=== PATIENT | female | born 1965 | race African-American/Black ===

== ENCOUNTER 2021-03-25 13:15 | Outpatient (CLI) | payer OTHER ==
[2021-04-03] MEDS ORDERED: ASPI-992 PO (13:48)
== END 2021-03-25 23:59 | disposition home or self-care (01) ==
LOC: LAB 13:15
PROVIDERS: ATTEND Specialist
DX: Z01.818 Encounter for other preprocedural examination (principal); Z20.822 Contact with and (suspected) exposure to COVID-19
CPT/HCPCS: C9803; U0003

== ENCOUNTER 2021-04-01 08:07 | Inpatient (IN) | payer OTHER ==
[~2021-04-01] VITALS: Ht 157.5 cm; Wt 84.8 kg
[2021-04-01] VITALS (7 sets, daily range): BP systolic 105–145; BP diastolic 55–88
[~2021-04-01 08:07] MED LIST: ANESTHESIA TRAY IN PYXIS 1 EA TRAY MC ONE
[2021-04-01] MEDS ORDERED: MIDAZOLAM HCL 2 MG/2ML VIAL ONE (09:39)
[2021-04-01] MEDS ORDERED: FENTANYL PF 250MCG/5ML AMPUL ONE (09:39)
[2021-04-01] MEDS ORDERED: HYDROMORPHONE INJ 2 MG/ML DISP.SYRIN ONE ×2 (09:40→12:56)
[2021-04-01] MEDS ORDERED: FENTANYL PF 100MCG/2ML AMPUL ONE (09:40)
[2021-04-01] MEDS ORDERED: ROCURONIUM BROMIDE 50 MG/5 ML ONE (09:41)
[2021-04-01] MEDS ORDERED: FAMOTIDINE/PF INJ 20 MG/2 ML VIAL IV ONE (09:41)
[2021-04-01] MEDS ORDERED: BUPIVACAINE 0.25% 75 MG/30 ML VIAL ONE (09:42)
[2021-04-01] MEDS ORDERED: TRANEXAMIC ACID 3,000 MG in SODIUM CHLORIDE IRRIG SOLUTION 70 ML IR ONE (11:00)
[2021-04-01] MEDS ORDERED: CLONIDINE HCL 0.1 MG TABLET PO PRN (12:30)
[2021-04-01] MEDS ORDERED: diphenhydrAMINE HCL 25 MG CAPSULE PO PRN (12:30)
[2021-04-01] MEDS ORDERED: MAGNESIUM HYDROXIDE 30 ML UDC PO PRN (12:30)
[2021-04-01] MEDS ORDERED: MENTHOL/CETYLPYRD (CEPACOL) 1 LOZ LOZENGE PO PRN (12:30)
[2021-04-01] MEDS ORDERED: ONDANSETRON HCL/PF 4 MG/2 ML VIAL IV PRN (12:30)
[2021-04-01] MEDS ORDERED: HYDROMORPHONE 1 MG/1 ML DISP.SYRIN SQ PRN (12:30)
[2021-04-01] MEDS ORDERED: MAG HYDROX/AL HYDROX/SIMETH 30 ML UDC PO PRN (12:30)
[2021-04-01] MEDS ORDERED: BUPIVACAINE 0.5 % PF 150 MG/30 ML VIAL ONE (12:59)
[2021-04-01] MEDS ORDERED: ACETAMINOPHEN 325 MG TABLET PO PRN (13:00)
[2021-04-01] MEDS ORDERED: BISACODYL SUPP (10 MG) 10 MG/SUPP.RECT SUPP.RECT RC PRN (15:00)
[2021-04-01] MEDS ORDERED: SENNOSIDES 8.6 MG TABLET PO PRN (15:00)
[2021-04-01] MEDS ORDERED: DOCUSATE SODIUM 100 MG CAPSULE PO PRN (15:00)
--- NOTE | 2021-04-01 15:25 | NUR ---
RN NOTES RECEIVED REPORT FROM NEGRA DOVETAILER, PATIENT IS ON ROOM AIR. PATIENT IN NO APPARENT RESPIRATORY DISTRESS NOTED. NO COMPLAINED OF PAIN NOTED AT THIS TIME. DR. GRIMES REGULAR DIET DRESSING CHANGE- FIRST DRESSING PRIOR TO DISCHARGE, NURSE TO CHANGE. BATHROOM WITH ASSISTANCE, TRAPEZOID BED, CPM MACHINE, WALKER WEIGHT BEARING TOLERATED, NOTED AND CARRIED OUT.
[2021-04-01] MEDS: IV LR 1000 ML 1,000 ML IV PRN (16:12)
[2021-04-01] MEDS ORDERED: POLYMYXIN B SULFATE 500,000 UNITS ONE (16:55)
[2021-04-01 17:14] LABS: HEMOGLOBIN 8.8 g/dL (11.5-14.8)
--- NOTE | 2021-04-01 17:23 | NUR ---
RN NOTES MANISHA CARNES DRINK MIXER ORDER REGLAN 10MG EVERY 6 HOURS PRN. NOTED AND CARRIED OUT.
[2021-04-01] MEDS ORDERED: METOCLOPRAMIDE HCL 10 MG/2 ML VIAL IV PRN (17:30)
[2021-04-01] MEDS: CEFAZOLIN 1 GM in IV D5W 50 ML IV SCH ×2 (17:30→20:28)
[2021-04-01] MEDS: DOCUSATE SODIUM 100 MG CAPSULE PO SCH (17:33)
--- NOTE | 2021-04-01 19:28 | NUR ---
MS/RN CLOSING NOTES PATIENT IS ON BED ALERT AND ORIENTED X4. PATIENT IS ON ROOM AIR. PATIENT IN NO APPARENT RESPIRATORY DISTRESS NOTED. NO COMPLAINED OF PAIN NOTED AT THIS TIME. IV ACCESS AT LEFT HAND #20G WITH IV FLUID OF LR 1L AT 100ML/HOUR ON AND INFUSING WELL. SAFETY PRECAUTION WAS IN PLACED. BED IN LOWEST POSITION AND LOCKED. CALL LIGHT WITHIN REACH. PATIENT WAS VOMITED ONCE REGLAN 10MG IV WAS GIVEN. WILL ENDORSED TO SCARF GLUER FOR VIANCA.
--- NOTE | 2021-04-01 19:30 | NUR ---
RN OPENING NOTE PATIENT IN BED, EYES CLOSED, EASILY AROUSED. PATIENT A/O X 4, ABLE TO MAKE NEEDS KNOWN. PATIENT COMPLAINS OF NAUSEA AND VOMITING AT THIS TIME, REGLAN WAS GIVEN RECENTLY. NO COMPLAINS OF PAIN YET. R LE DIANDRA WRAPPED AND ELEVATED. PATIENT HAS A L HAND 20 G WITH LR RUNNING @ 100 ML/HR. SAFETY MEASURES IN PLACE, BED LOCKED AND IN LOWEST POSITION, CALL LIGHT WITHIN REACH, SIDE RAILS UP. WILL MONITOR PATIENT CLOSELY.
[2021-04-01] MEDS: FAMOTIDINE (20 MG) 20 MG TABLET PO SCH (20:28)
[2021-04-02] VITALS: BP 121/62
[2021-04-02] MEDS: oxyCODONE IR immediate release 5 MG PO PRN ×4 (01:52→17:27)
[2021-04-02] MEDS: IV LR 1000 ML 1,000 ML IV PRN (05:57)
[2021-04-02 06:35] LABS: BASOPHILS % (AUTO) 0.3 % (0.0-2.0); HEMATOCRIT 32 % (33-45); HEMOGLOBIN 10.6 g/dL (11.5-14.8); LYMPHOCYTES # (AUTO) 1.1 K/uL (0.8-4.8); LYMPHOCYTES % (AUTO) 9.7 % (20.0-44.0); MEAN CORPUSCULAR HGB CONC 33 g/dl (31.0-36.0); MEAN CORPUSCULAR VOLUME 83 fL (82-100); MONOCYTES # (AUTO) 0.9 K/uL (0.1-1.30); MONOCYTES % (AUTO) 8.3 % (2.0-12.0); NEUTROPHILS # (AUTO) 9.1 K/uL (1.8-8.9); NEUTROPHILS % (AUTO) 81.7 % (43.0-81.0); PLATELET COUNT (AUTO) 266 K/uL (150-450); RED BLOOD CELL COUNT(AUTO) 3.89 MIL/uL (4.0-5.2); WHITE BLOOD COUNT (AUTO) 11.1 K/uL (4.3-11.0)
[2021-04-02 07:06] LABS: ALBUMIN 3.3 g/dL (3.4-5.0); BILIRUBIN,TOTAL 0.6 mg/dL (0.2-1.0); CREATININE 0.9 mg/dL (0.6-1.3); MAGNESIUM 2.1 mg/dL (1.8-2.4); PHOSPHORUS 3.2 mg/dL (2.5-4.9); POTASSIUM 3.9 mmol/L (3.5-5.1); TOTAL PROTEIN, SERUM 7.3 g/dL (6.4-8.2)
[2021-04-02 07:22] LABS: THYROID STIMULATING HORMONE 1.067 uIU/mL (0.358-3.74)
--- NOTE | 2021-04-02 07:25 | NUR ---
RN CLOSING NOTE PATIENT REPORTS NO PAIN AT THIS TIME, NOT IN ANY APPARENT DISTRESS. OXY IR GIVEN [id number]. ENDORSED TO DAY SHIFT NURSE FOR VIANCA.
--- NOTE | 2021-04-02 07:41 | NUR ---
MS/RN OPENING NOTE RECEIVED PATIENT IN BED, A/O X 4, ABLE TO MAKE NEEDS KNOWN. STABLE ON ROOM AIR. NO COMPLAINS OF PAIN NOTED. RIGHT LOWER LEG DIANDRA WRAPPED AND ELEVATED. PATIENT HAS A L HAND #20G WITH LR RUNNING @ 100 ML/HR. SAFETY MEASURES IN PLACE, BED LOCKED AND IN LOWEST POSITION, CALL LIGHT WITHIN REACH, SIDE RAILS UP X2. WILL MONITOR PATIENT CLOSELY.
[2021-04-02 08:00] VITALS: BP 114/82
[2021-04-02] MEDS: METFORMIN 500 MG TABLET PO SCH ×3 (09:00→17:00)
[2021-04-02] MEDS: ASPIRIN 325 MG TABLET PO SCH (09:13)
[2021-04-02] MEDS: FAMOTIDINE (20 MG) 20 MG TABLET PO SCH ×2 (09:13→21:46)
[2021-04-02] MEDS: DOCUSATE SODIUM 100 MG CAPSULE PO SCH ×2 (09:14→17:26)
--- NOTE | 2021-04-02 09:20 | NUR ---
MS/RN NOTES- METFORMIN PATIENT REFUSED METFORMIN 500MG, PER PATIENT, IT IS A MISTAKE. SHE IS NEVER A DIABETIC AND SHE NEVER TOOK METFORMIN AT HOME AT ALL. WILL NOTIFY PHARMACY AND MD.
[2021-04-02 16:00] VITALS: BP 145/80
--- NOTE | 2021-04-02 17:28 | NUR ---
MS/RN NOTES- METFORMIN PATIENT HAS BEEN REFUSING HER METFORMIN, PROFESSIONAL NURSING TUTOR MANISHA OLIVO IS AWARE. ALREADY SPOKE TO THE PATIENT AT BEDSIDE. WILL CONTINUE TO MONITOR.
--- NOTE | 2021-04-02 18:52 | NUR ---
MS/RN CLOSING NOTE PATIENT IN BED, A/O X 4, ABLE TO MAKE NEEDS KNOWN. STABLE ON ROOM AIR. NO COMPLAINS OF PAIN NOTED. RIGHT LOWER LEG DIANDRA WRAPPED AND ELEVATED. PATIENT HAS A L HAND #20G WITH LR RUNNING @ 100 ML/HR. ALL NEEDS MET. SAFETY MEASURES IN PLACE, BED LOCKED AND IN LOWEST POSITION, CALL LIGHT WITHIN REACH, SIDE RAILS UP X2. WILL ENDORSE TO THE NEXT SHIFT FOR VIANCA.
--- NOTE | 2021-04-02 19:29 | NUR ---
RN NOTES PATIENT IN BED, A/O X 4, ABLE TO MAKE NEEDS KNOWN. STABLE ON ROOM AIR. NO COMPLAINS OF PAIN NOTED. RIGHT LOWER LEG DIANDRA WRAPPED AND ELEVATED. PATIENT HAS A L HAND #20G WITH LR RUNNING @ 100 ML/HR. ALL NEEDS MET. SAFETY MEASURES IN PLACE, BED LOCKED AND IN LOWEST POSITION, CALL LIGHT WITHIN REACH, SIDE RAILS UP X2. WILL CONTINUE TO MONITOR.
[2021-04-02 20:00] VITALS: BP 138/71
[2021-04-03] MEDS: IV LR 1000 ML 1,000 ML IV PRN ×2 (01:11→04:07)
[2021-04-03] MEDS: oxyCODONE IR immediate release 5 MG PO PRN ×3 (01:43→15:01)
[2021-04-03 06:20] LABS: BASOPHILS % (AUTO) 0.4 % (0.0-2.0); EOSINOPHILS % (AUTO) 0.3 % (0.0-6.0); HEMATOCRIT 31 % (33-45); HEMOGLOBIN 10.3 g/dL (11.5-14.8); LYMPHOCYTES # (AUTO) 1.1 K/uL (0.8-4.8); MEAN CORPUSCULAR HGB CONC 33 g/dl (31.0-36.0); MEAN CORPUSCULAR VOLUME 83 fL (82-100); MONOCYTES # (AUTO) 1.1 K/uL (0.1-1.30); NEUTROPHILS # (AUTO) 6.7 K/uL (1.8-8.9); NEUTROPHILS % (AUTO) 75.3 % (43.0-81.0); PLATELET COUNT (AUTO) 250 K/uL (150-450); RED BLOOD CELL COUNT(AUTO) 3.75 MIL/uL (4.0-5.2); WHITE BLOOD COUNT (AUTO) 8.8 K/uL (4.3-11.0)
--- NOTE | 2021-04-03 06:52 | NUR ---
RN NOTES PATIENT IN BED, A/O X 4, ABLE TO MAKE NEEDS KNOWN. STABLE ON ROOM AIR. NO COMPLAINS OF PAIN NOTED. RIGHT LOWER LEG DIANDRA WRAPPED AND ELEVATED. IV INFILTRATED REMOVED APPLIED ICE PACK AND ELEVATED HAND. PT REFUSING NEW IV SITE RISK AND BENEFITS EXPLAINED X3 REFUSED X3. ALL NEEDS MET.SAFETY MEASURES IN PLACE, BED LOCKED AND IN LOWEST POSITION, CALL LIGHT WITHIN REACH, SIDE RAILS UP X2. WILL ENDORSE CARE TO DAY SHIFT.
[2021-04-03 07:17] LABS: CREATININE 0.9 mg/dL (0.6-1.3); MAGNESIUM 1.9 mg/dL (1.8-2.4); POTASSIUM 3.6 mmol/L (3.5-5.1)
--- NOTE | 2021-04-03 07:45 | NUR ---
RN OPENING NOTE- RECEIVED PATIENT IN BED, A/O X 4, ABLE TO MAKE NEEDS KNOWN. STABLE ON ROOM AIR. NO COMPLAINS OF PAIN NOTED. RIGHT LOWER LEG DIANDRA WRAPPED AND ELEVATED. ICE BAG TO L HAND . IV INFILTRATED. IVF STOPPED SAFETY MEASURES IN PLACE, BED LOCKED AND IN LOWEST POSITION, CALL LIGHT WITHIN REACH, SIDE RAILS UP X2. WILL MONITOR PATIENT CLOSELY.
[2021-04-03 08:00] VITALS: BP 143/81
[2021-04-03] MEDS: FAMOTIDINE (20 MG) 20 MG TABLET PO SCH (09:28)
[2021-04-03] MEDS: ASPIRIN 325 MG TABLET PO SCH (09:28)
[2021-04-03] MEDS: DOCUSATE SODIUM 100 MG CAPSULE PO SCH (09:28)
[2021-04-03] MEDS: METFORMIN 500 MG TABLET PO SCH (09:28)
[2021-04-03] MEDS ORDERED: ASPI-992 PO (13:48)
--- NOTE | 2021-04-03 16:50 | NUR ---
PRIOR AUTHORIZATION TECHNICIAN NOTE- PT DC HOME AT THIS TIME INTO THE CARE OF FAMILY WHO CAME TO TRANSPORT. PT IS ALERT ORIENTED TO PERSON PLACE TIME PURPOSE. VITAL SIGNS STABLE. SURGICAL DRESSING CHANGED TO RT KNEE. NO DRAINAGE, NO DEHISCENCE, NO ERYTHEMA OR EXUDATE. MARITZA AND INCISION INTACT. COVERED W STERILE DRESSING AND WRAPPED SECURELY. POST HOSPITALIZATION AND AFTERCARE REVIEWED W PT AND FOLLOW UP INSTRUCTIONS WELL. PT VERBALIZED UNDERSTANDING. VALUABLES COLLECTED, ID [id number] REMOVED, ESCORTED OFF UNIT BY RN AND EDUCATION ASSOCIATE.
== END 2021-04-03 17:00 | disposition home or self-care (01) | DRG 468 ==
LOC: DS 08:07 → MED 14:24
PROVIDERS: ADMIT Registered Nurse; ATTEND Registered Nurse
PROC: 0SPC0JZ Removal of Synthetic Substitute from Right Knee Joint, Open Approach (ICD-10-PCS; principal; 2021-04-01)
PROC: 0SRC0J9 Replacement of Right Knee Joint with Synthetic Substitute, Cemented, Open Approach (ICD-10-PCS; 2021-04-01)
DX: T84.84XA Pain due to internal orthopedic prosthetic devices, implants and grafts, initial encounter (principal); M17.11 Unilateral primary osteoarthritis, right knee; Z68.34 Body mass index [BMI] 34.0-34.9, adult; K57.90 Diverticulosis of intestine, part unspecified, without perforation or abscess without bleeding; I25.10 Atherosclerotic heart disease of native coronary artery without angina pectoris; Y92.009 Unspecified place in unspecified non-institutional (private) residence as the place of occurrence of the external cause; D72.829 Elevated white blood cell count, unspecified; E11.9 Type 2 diabetes mellitus without complications; E66.01 Morbid (severe) obesity due to excess calories; Z96.651 Presence of right artificial knee joint; Z79.82 Long term (current) use of aspirin; Y99.0 Civilian activity done for income or pay; Y83.1 Surgical operation with implant of artificial internal device as the cause of abnormal reaction of the patient, or of later complication, without mention of misadventure at the time of the procedure; X58.XXXA Exposure to other specified factors, initial encounter; G89.29 Other chronic pain; G89.18 Other acute postprocedural pain
CPT/HCPCS: 36415; 80048-TC; 80053-TC; 80061-TC; 83735-TC; 84100-TC; 84443-TC; 84703-TC; 85025-TC; 85027-TC; 86850-TC; 87081-TC; 88305-TC; 88311-TC; 97110-TC; 97112-TC; 97116-TC; 97530-TC; 97760-TC; A4217; C1713; C1776; G0378; J0690; J1170; J2250; J2405; J2704; J2765; J3010; J3490; J7030; J7060; J7120